=== PATIENT | female | born 1990 | race Two or more races ===

== ENCOUNTER 2020-11-28 23:55 | Emergency (ER) | payer OTHER ==
[~2020-11-28] VITALS: Ht 162.6 cm; Wt 91.0 kg
[2020-11-29] MEDS ORDERED: IBUP-2028 MT (01:12)
[2020-11-29] MEDS ORDERED: IBUPROFEN 600MG TABLET PO ONE (01:15)
[2020-11-29 01:30] VITALS: BP 120/80
== END 2020-11-29 02:37 | disposition home or self-care (01) ==
LOC: ER 23:55
DX: M54.6 Pain in thoracic spine (principal); V49.49XA Driver injured in collision with other motor vehicles in traffic accident, initial encounter; Y93.89 Activity, other specified; Y92.89 Other specified places as the place of occurrence of the external cause; Y99.8 Other external cause status
CPT/HCPCS: 81025; 99282

== ENCOUNTER 2021-12-30 02:28 | Emergency (ER) | payer MEDICAID ==
[~2021-12-30 02:28] MED LIST: IBUP-2028 MT
== END 2021-12-30 03:35 | disposition left against medical advice (07) ==
LOC: ER 02:28
DX: Z53.21 Procedure and treatment not carried out due to patient leaving prior to being seen by health care provider (principal)